=== PATIENT | female | born 1955 | race Caucasian/White ===

== ENCOUNTER → 2018-06-16 | Outpatient (CLI) | payer OTHER ==
--- NOTE | 2018-06-16 10:25 | PCVCIMAG ---
APPROVED REPORT Study performed: 06/16/2018 07:51:17 EXAM: Comprehensive 2D, Doppler, and color-flow Echocardiogram Patient Location: Echo lab Status: routine BSA: 1.93 HR: 64 bpmBP: 100/80 mmHg Rhythm: NSR Other Information Study Quality: Adequate Risk Factors: Cardiac Risk Factors: Smoking, FHX of CAD Indications Dyspnea 2D Dimensions LVEF(%): 67.52 (>50%) IVSd: 6.78 (7-11mm)LVOT Diam: 19.94 (18-24mm) LVDd: 53.56 mm PWd: 5.54 (7-11mm)Ascending Ao: 32.26 (22-36mm) LVDs: 33.28 (25-40mm) Left Atrium: 25.87 (27-40mm) Aortic Root: 28.69 mm LV Single Plane 4CH: 62.13 % LV Single Plane 2CH: 58.19 %Mejia's LVEF: 60.16 % Volumes Left Atrial Volume (Systole) Single Plane 4CH: 25.82 mLSingle Plane 2CH: 23.32 mL LA ESV Index: 13.00 mL/m2 Aortic Valve AoV Peak Bubba.: 1.34 m/s AO Peak Gr.: 7.14 mmHgLVOT Max P.65 mmHg LVOT Max V: 1.08 m/s PAN Vmax: 2.52 cm2 Mitral Valve E/A Ratio: 1.3 MV Decel. Time: 222.08 ms MV E Max Bubba.: 0.83 m/s MV A Bubba.: 0.63 m/s IVRT: 103.81 ms TDI E/Lateral E': 6.92E/Medial E': 5.93 Medial E' Bubba.: 0.14 m/s Lateral E' Bubba.: 0.12 m/s Pulmonary Valve PV Peak Gr.: 1.11 mmHg Pulmonary Vein P Vein S: 0.66 m/sP Vein A: 0.37 m/s P Vein D: 0.48 m/sP Vein A Dur.: 100.3 msec P Vein S/D Ratio: 1.38 Left Ventricle The left ventricle is normal size. There is normal LV segmental wall motion. There is normal left ventricular wall thickness. Left ventricular systolic function is normal. The left ventricular ejection fraction is within the normal range. LVEF is 60-65%. The left ventricular diastolic function is normal. Right Ventricle The right ventricle is normal size. The right ventricular systolic function is normal. Atria The left atrium size is normal. The right atrium size is normal. Aortic Valve The aortic valve is normal in structure. No aortic regurgitation is present. There is no aortic valvular stenosis. Mitral Valve The mitral valve is normal in structure. There is no mitral valve regurgitation noted. No evidence of mitral valve stenosis. Tricuspid Valve The tricuspid valve is normal in structure. There is no tricuspid valve regurgitation noted. Pulmonic Valve The pulmonary valve is normal in structure. There is no pulmonic valvular regurgitation. Great Vessels The aortic root is normal in size. IVC is normal in size and collapses with >50% inspiration Pericardium There is no pericardial effusion. <Conclusion> The left ventricle is normal size. LVEF is 60-65%. The aortic valve is normal in structure. The mitral valve is normal in structure. The tricuspid valve is normal in structure. The pulmonary valve is normal in structure. There is no pericardial effusion.
--- NOTE | 2018-06-16 13:23 | PCVCIMAG ---
APPROVED REPORT Imaging Protocol: Rest Tc-99m/Stress Tc-99m 1 day Study performed: 06/16/2018 09:21:06 Indication: Chest pain, Dyspnea On Exertion Patient Location: Out-Patient Stress Nurse: Evelyn Mauro RN [employer]:JOSSIE Friend Ht: 5 ft 7 in Wt: 180 lbs BSA: 1.93 m2 HR: 81 bpm BP: 134/63 mmHg BMI: 28.1 Rhythm: Sinus Rhythm Incomplete RBBB Medical History Medications: No Meds Allergies: ASA Cardiac Risk Factors: Age, Tobacco History (Current/Recent) Pretest Chest Pain Characteristics: No chest pain Exercise History: Sedentary Resting Data Rest SPECT myocardial perfusion imaging was performed in supine position 45 minutes following the intravenous injection of 11.6 mCi of Tc-99m Sestamibi. Time of rest injection: 844 Date: 06/16/2018 Administration Route: IV Administration Site: Right AC Exercise Stress At peak stress, the patient was injected intravenously with 32.0mCi of Tc-99m Sestamibi. Time of stress injection: 1005 Date: 06/16/2018 Administration Route: IV Administration Site: Right AC Patient continued to exercise for 1 minute(s). Gated Stress SPECT was performed 45 minutes after stress injection. The images were gated to evaluate regional wall motion and calculate left ventricular ejection fraction. Stress Test Details Stress Test: Exercise stress testing was performed using a Michele protocol. HRMax Heart Rate (APMHR): 157 bpm Resting HR: 81 bpmTarget HR (85% APMHR): 133 bpm Max HR Achieved: 144 bpm % of APMHR: 91 Recovery HR: 140 bpm HR response to stress: Normal HR response to stress BP Resting BP: 134/63 mmHg Recovery BP: 140/63 mmHg BP response to stress: Normal blood pressure response to stress. ECG Resting ECG: Sinus Rhythm, incomplete RBBB Stress ECG: Sinus Tachycardia, incomplete RBBB ST Change: Upsloping ST depression Maximum ST Deviation: 1 mm Arrhythmia: PVCs Recovery ECG: Sinus Rhythm, incomplete RBBB Recovery ST Change: Upsloping ST depression Recovery ST Deviation: 0.25 mm Clinical Reason for Termination: Dyspnea, Fatigue Stress Symptoms: Dyspnea Exercise duration: 6 min 30 sec Exercise capacity: 8.5 METs Overall Exercise Capacity for Age: Poor Scale: Sedentary Angina Score: None Symptoms resolved during recovery. Stress ECG Conclusion 1. Subjectively negative for ischemia 2. Echocardiographically suggestive but does not peripheral arterial for ischemia 3. Average functional capacity Walters Treadmill Score is 1.0 which is Moderate risk. Study Data Post stress, the left ventricular ejection was 74%.. SSS: 1 SRS: 0 SDS: 1 TID = 1.06. Perfusion There is a small area of moderately reduced uptake in the apical segment of the anterior and inferior wall which is seen on the stress images as well as the resting images. This area thickens and moves normally and is most consistent with attenuation artifact. Wall Motion Normal left ventricular wall motion. Nuclear Conclusion ECG Findings: negative for ischemia Clinical Findings: equivocal Nuclear Findings: negative for ischemia Exercise Capacity: normal Left Ventricular Function: normal 1. Low risk study Interpreted by: Dwayne Ramirez MD Electronically Approved: 06/16/2018 13:22:26 <Conclusion> 1. Subjectively negative for ischemia 2. Echocardiographically suggestive but does not peripheral arterial for ischemia 3. Average functional capacity
== END | disposition home or self-care (01) ==
LOC: PCVCIMAG 13:18
PROVIDERS: ATTEND Internal Medicine
DX: R07.9 Chest pain, unspecified (principal); R06.09 Other forms of dyspnea; F17.200 Nicotine dependence, unspecified, uncomplicated
CPT/HCPCS: 78452; 93017; 93306; A9500